=== PATIENT | male | born 1960 | race Caucasian/White ===

== ENCOUNTER 2018-12-29 11:31 | Inpatient (IN) ==
[2018-12-29] MEDS ORDERED: NITROGLYCERIN SL 0.4 MG TABLET SL ONE (11:51)
[2018-12-29] MEDS ORDERED: ENOXAPARIN 100 MG/ML SYRINGE SUBCUT STA (11:51)
[2018-12-29] MEDS: NITROGLYCERIN SL 0.4 MG TABLET SL PRN ×2 (11:52→12:01)
[2018-12-29] MEDS ORDERED: ENOXAPARIN 120 MG/0.8 ML SYRINGE SUBCUT ONE (11:58)
[2018-12-29 12:21] LABS: Albumin 3.7 G/DL (3.4-5.0); Bilirubin,Total 0.9 MG/DL (0.2-1.0); Calcium 10.1 MG/DL (8.5-10.1); Osmolality,Calculated 282.4 MOS/KG (273-304)
[2018-12-29] MEDS ORDERED: POTASSIUM CHLORIDE 20 MEQ TABLET PO ONE ×2 (12:38→15:31)
[2018-12-29] MEDS ORDERED: MAGNESIUM CHLORIDE 64 MG TABLET PO ONE (12:38)
[2018-12-29] MEDS ORDERED: POTASSIUM CHLORIDE 20 MEQ TABLET PO STA (12:40)
[2018-12-29] MEDS ORDERED: MAGNESIUM CHLORIDE 64 MG TABLET PO STA (12:40)
[2018-12-29 12:46] LABS: Basophils % 0.4 % (0.0-0.8); Eosinophils % 0.2 % (0.00-10.9); Hematocrit 41.5 VOL% (42.0-52.0); Hemoglobin 14.3 GM/DL (14.0-18.0); Immature Granulocytes % 0.2 %; Immature Granulocytes Absolute 0.02 #; Lymphocytes % 10.9 % (21.2-54.2); Mean Corpuscular HGB Conc 34.5 GM/DL (32-36); Mean Corpuscular Volume 84.9 FL (87-102); Mean Platelet Volume 13.2 FL (9.6-12.0); Monocytes % 5.4 % (1.7-12.7); Neutrophils % 82.9 % (38.7-73.9); Platelet Count 142 T/CUMM (130-400); Red Blood Count 4.89 MC/CUMM (3.8-5.5); Red Cell Distribution Width 12.7 % (9.3-17.3); White Blood Count 9.5 T/CUMM (4-12)
[2018-12-29] MEDS ORDERED: MAGNESIUM SULF RIDER 2 GM in PREMIX 1 EACH IV PRN (13:56)
[2018-12-29] MEDS ORDERED: DIAZEPAM 5 MG TABLET PO ONE (13:56)
[2018-12-29] MEDS ORDERED: diphenhydrAMINE CAP 25 MG CAPSULE PO ONE (13:56)
[2018-12-29] MEDS ORDERED: POTASSIUM CHLORIDE RIDER 10 MEQ in PREMIX 1 EACH IV PRN (13:56)
[2018-12-29] MEDS ORDERED: LIDOCAINE 1% 20 ML VIAL ONE (13:57)
[2018-12-29] MEDS ORDERED: HEPARIN/NACL 0.9% 2 UNITS/ML 1,000 ML IV ONE (13:57)
[2018-12-29] MEDS ORDERED: tiZANidine 4 MG TABLET PO PRN (13:58)
[2018-12-29] MEDS ORDERED: DEXTROSE 50% 25 GM/50 ML VIAL IV PRN ×2 (13:59→15:24)
[2018-12-29] MEDS ORDERED: GLUCAGON 1 MG VIAL IM PRN ×2 (13:59→15:24)
[2018-12-29] MEDS ORDERED: NITROGLYCERIN DRIP 50 MG/250 ML BOTTLE IV ONE (14:21)
[2018-12-29] MEDS ORDERED: VERAPAMIL 5 MG/2 ML VIAL ONE (14:21)
[2018-12-29] MEDS ORDERED: MIDAZOLAM 2 MG/2 ML VIAL ONE ×2 (14:25→14:44)
[2018-12-29] MEDS ORDERED: fentaNYL 100 MCG/2 ML VIAL ONE (14:25)
[2018-12-29] MEDS ORDERED: POTASSIUM CHLORIDE RIDER 100 ML IV ONE (14:35)
[2018-12-29] MEDS ORDERED: MAGNESIUM SULF RIDER 50 ML IV ONE (14:35)
[2018-12-29] MEDS ORDERED: diphenhydrAMINE 50 MG/1 ML VIAL ONE (14:38)
[2018-12-29] MEDS ORDERED: ENOXAPARIN 60 MG/0.6 ML SYRINGE ONE (14:50)
[2018-12-29] MEDS ORDERED: HEPARIN/NACL 0.9% 2 UNITS/ML 500 ML IV ONE (14:59)
[2018-12-29] MEDS ORDERED: TICAGRELOR 90 MG TABLET ONE (15:17)
[2018-12-29] MEDS ORDERED: MORPHINE 4 MG/1 ML VIAL IV PRN (15:24)
[2018-12-29] MEDS ORDERED: ONDANSETRON 4 MG/2 ML VIAL IV PRN (15:24)
[2018-12-29] MEDS ORDERED: ZALEPLON 5 MG CAPSULE PO PRN (15:24)
[2018-12-29] MEDS ORDERED: ACETAMINOPHEN 325 MG TABLET PO PRN (15:24)
[2018-12-29] MEDS ORDERED: PNEUMOCOCCAL VACCINE (23 VALENT) 0.5 ML VIAL IM ONE (17:01)
[2018-12-29] MEDS: SODIUM CHLORIDE 0.9% 1,000 ML IV SCH ×2 (17:19→22:13)
[2018-12-29] MEDS: INSULIN REGULAR 100 UNIT/ML SUBCUT SCH ×2 (18:01→22:13)
[2018-12-29] MEDS: PREGABALIN 100 MG CAPSULE PO SCH ×2 (18:22→22:12)
[2018-12-29] MEDS ORDERED: POTASSIUM CHLORIDE 20 MEQ TABLET PO SCH (21:00)
[2018-12-29] MEDS: TICAGRELOR 90 MG TABLET PO SCH (22:12)
[2018-12-29] MEDS: MAGNESIUM OXIDE 400 MG TABLET PO SCH (22:12)
[2018-12-29] MEDS: ROSUVASTATIN 20 MG TABLET PO SCH (22:12)
[2018-12-30] MEDS: cycloSPORINE OPH EMUL 1 VIAL BOTH EYES SCH ×3 (02:10→21:22)
[2018-12-30 04:43] LABS: Basophils % 0.5 % (0.0-0.8); Eosinophils # 0.1 10*3/uL (0.0-0.87); Eosinophils % 0.9 % (0.00-10.9); Hematocrit 42.7 VOL% (42.0-52.0); Hemoglobin 13.9 GM/DL (14.0-18.0); Immature Granulocytes % 0.4 %; Immature Granulocytes Absolute 0.03 #; Lymphocytes # 2.5 10*3/uL (1.4-4.0); Lymphocytes % 32.8 % (21.2-54.2); Mean Corpuscular HGB Conc 32.6 GM/DL (32-36); Mean Platelet Volume 12.3 FL (9.6-12.0); Monocytes % 9.1 % (1.7-12.7); Neutrophils % 56.3 % (38.7-73.9); Platelet Count 101 T/CUMM (130-400); Red Blood Count 4.85 MC/CUMM (3.8-5.5); White Blood Count 7.7 T/CUMM (4-12)
[2018-12-30 04:48] LABS: Calcium 8.5 MG/DL (8.5-10.1); Osmolality,Calculated 272.1 MOS/KG (273-304)
[2018-12-30 04:52] LABS: Calcium 8.8 MG/DL (8.5-10.1); Osmolality,Calculated 283.1 MOS/KG (273-304); Risk Ratio 4.87; VLDL CHOLESTEROL 56.4 MG/DL
[2018-12-30] MEDS ORDERED: POTASSIUM CHLORIDE 20 MEQ TABLET PO ONE (06:33)
[2018-12-30] MEDS: INSULIN REGULAR 100 UNIT/ML SUBCUT SCH ×4 (08:21→21:27)
[2018-12-30] MEDS: TICAGRELOR 90 MG TABLET PO SCH ×2 (08:22→21:22)
[2018-12-30] MEDS: POTASSIUM CHLORIDE 20 MEQ TABLET PO SCH ×3 (08:22→21:22)
[2018-12-30] MEDS: AMITRIPTYLINE 100 MG TABLET PO SCH (08:22)
[2018-12-30] MEDS: PANTOPRAZOLE 40 MG TABLET PO SCH (08:23)
[2018-12-30] MEDS: LOSARTAN 25 MG TABLET PO SCH (08:23)
[2018-12-30] MEDS: ASPIRIN EC 81 MG TABLET PO SCH (08:23)
[2018-12-30] MEDS: PREGABALIN 100 MG CAPSULE PO SCH ×3 (08:23→21:22)
[2018-12-30] MEDS: CARVEDILOL 3.125 MG TABLET PO SCH ×2 (08:23→16:24)
[2018-12-30] MEDS: MAGNESIUM OXIDE 400 MG TABLET PO SCH ×2 (08:23→21:22)
[2018-12-30] MEDS ORDERED: ASPIRIN EC 325 MG TABLET PO SCH (09:00)
[2018-12-30] MEDS: SODIUM CHLORIDE 0.9% 1,000 ML IV SCH (10:16)
[2018-12-30] MEDS: ROSUVASTATIN 20 MG TABLET PO SCH (21:21)
[2018-12-31 05:10] LABS: Basophils % 0.4 % (0.0-0.8); Eosinophils # 0.1 10*3/uL (0.0-0.87); Eosinophils % 0.9 % (0.00-10.9); Hematocrit 42.5 VOL% (42.0-52.0); Hemoglobin 13.7 GM/DL (14.0-18.0); Immature Granulocytes % 0.4 %; Immature Granulocytes Absolute 0.03 #; Lymphocytes # 2.7 10*3/uL (1.4-4.0); Lymphocytes % 33.3 % (21.2-54.2); Mean Corpuscular HGB Conc 32.2 GM/DL (32-36); Mean Corpuscular Volume 89.1 FL (87-102); Mean Platelet Volume 12.1 FL (9.6-12.0); Monocytes % 7.3 % (1.7-12.7); Neutrophils % 57.7 % (38.7-73.9); Platelet Count 113 T/CUMM (130-400); Red Blood Count 4.77 MC/CUMM (3.8-5.5); White Blood Count 8.2 T/CUMM (4-12)
[2018-12-31 05:24] LABS: Calcium 8.9 MG/DL (8.5-10.1); Osmolality,Calculated 286.8 MOS/KG (273-304)
[2018-12-31 07:39] VITALS: BP 138/75
[2018-12-31] MEDS: ASPIRIN EC 81 MG TABLET PO SCH (08:13)
[2018-12-31] MEDS: CARVEDILOL 3.125 MG TABLET PO SCH (08:13)
[2018-12-31] MEDS: LOSARTAN 25 MG TABLET PO SCH (08:13)
[2018-12-31] MEDS: INSULIN REGULAR 100 UNIT/ML SUBCUT SCH (08:13)
[2018-12-31] MEDS: cycloSPORINE OPH EMUL 1 VIAL BOTH EYES SCH (08:13)
[2018-12-31] MEDS: PREGABALIN 100 MG CAPSULE PO SCH (08:13)
[2018-12-31] MEDS: AMITRIPTYLINE 100 MG TABLET PO SCH (08:14)
[2018-12-31] MEDS: PANTOPRAZOLE 40 MG TABLET PO SCH (08:14)
[2018-12-31] MEDS: TICAGRELOR 90 MG TABLET PO SCH (08:14)
[2018-12-31] MEDS: MAGNESIUM OXIDE 400 MG TABLET PO SCH (08:14)
[2018-12-31] MEDS: POTASSIUM CHLORIDE 20 MEQ TABLET PO SCH (08:14)
== END 2018-12-31 10:00 | disposition home or self-care (01) | DRG 174 ==
LOC: EDUNIT# → EDBD → N.ED 11:31 → N.SDSINP 13:56 → N.TELES 16:45
PROVIDERS: ADMIT Internal Medicine Cardiovascular Disease; ATTEND Internal Medicine Cardiovascular Disease
PROC: CLCCHCL (ICD-10-PCS; 2018-12-29 14:45)